=== PATIENT | male | born 1990 | race Caucasian/White ===

== ENCOUNTER 2017-05-19 13:16 | Inpatient (IN) | payer OTHER ==
[~2017-05-19] VITALS: Ht 170.2 cm; Wt 87.7 kg
[2017-05-19] MEDS ORDERED: SOD CHLORIDE 0.9% 1,000 ML IV STA ×3 (13:30→17:29)
[2017-05-19 13:52] LABS: ADD SCAN DIFF NO
--- NOTE | 2017-05-19 14:02 | RADRPT ---
PROCEDURE: XR Chest. CLINICAL INDICATION: Sepsis TECHNIQUE: Single frontal chest x-ray. COMPARISON: None. FINDINGS: The lungs are clear of acute infiltrates, edema, effusions, or masses. There are low lung volumes wi th hilar vascular crowding.. The cardiomediastinal silhouette is unremarkable. The osseous structur es are intact. IMPRESSION: No acute cardiopulmonary disease. Low lung volumes RPTAT: EE .Florian Bates MD, MD Date Time Electronically viewed and signed by .Florian Bates MD, on 05/19/2017 14:02 .L/
[2017-05-19 14:12] LABS: INR 0.79; PARTIAL THROMBOPLASTIN TIME 21.7 Sec (25.0-35.0); PT RATIO 0.9
[2017-05-19 14:17] LABS: BASOPHILS % 0.4 % (0.0-2.0); EOSINOPHILS % 0.4 % (0.0-7.0); HEMATOCRIT 34.3 % (42.0-52.0); HEMOGLOBIN 12.5 g/dl (14.0-18.0); LYMPHOCYTES # 1.1 10^3/ul (0.8-2.9); LYMPHOCYTES % 13.6 % (15.0-51.0); MEAN CORPUSCULAR HEMOGLOBIN 30.3 pg (29.0-33.0); MEAN CORPUSCULAR HGB CONC 36.4 g/dl (32.0-37.0); MEAN CORPUSCULAR VOLUME 83.1 fl (82.0-101.0); MEAN PLATELET VOLUME 10.3 fl (7.4-10.4); MONOCYTE # 0.3 10^3/ul (0.3-0.9); MONOCYTES % 3.6 % (0.0-11.0); NEUTROPHIL # 6.8 10^3/ul (1.6-7.5); PLATELET COUNT 291 10^3/UL (140-415); RED BLOOD COUNT 4.13 10^6/ul (4.70-6.10); RED CELL DISTRIBUTION WIDTH 11.4 % (11.5-14.5); WHITE BLOOD COUNT 8.4 10^3/ul (4.8-10.8)
[2017-05-19 14:18] LABS: ALBUMIN 2.5 g/dl (3.3-4.9); ALBUMIN/GLOBULIN RATIO 0.83; BILIRUBIN,INDIRECT 0.2 mg/dl (0-1.1); BILIRUBIN,TOTAL 0.2 mg/dl (0.2-1.3); CALCIUM 7.2 mg/dl (8.4-10.2); CREATININE 1.95 mg/dl (0.61-1.24); POTASSIUM 3.7 mmol/L (3.5-5.1); TOTAL PROTEIN 5.5 g/dl (6.1-8.1)
[2017-05-19] MEDS ORDERED: INSULIN HUMAN REGULAR 100 UNIT in SOD CHLORIDE 0.9% 99 ML IV STA ×2 (14:43→15:44)
[2017-05-19 15:09] LABS: ADD UMIC YES; UR ASCORBIC ACID NEGATIVE (NEGATIVE); UR BILIRUBIN (Dip) NEGATIVE (NEGATIVE); UR BLOOD (Dip) 1+ mg/dL (NEGATIVE); UR CLARITY CLEAR (CLEAR); UR COLOR STRAW (YELLOW); UR GLUCOSE (Dip) 3+ mg/dL (NEGATIVE); UR KETONES (Dip) NEGATIVE (NEGATIVE); UR LEUKOCYTE ESTERASE (Dip) NEGATIVE Leu/ul (NEGATIVE); UR NITRITE (Dip) NEGATIVE (NEGATIVE); UR RBC 2 /HPF (0-5); UR SPECIFIC GRAVITY (Dip) 1.015 (1.003-1.030); UR TOTAL PROTEIN (Dip) 3+ mg/dl (NEGATIVE); UR UROBILINOGEN (Dip) NEGATIVE (NEGATIVE)
[2017-05-19] MEDS: ACCU-CHEK XX SCH ×13 (15:34→23:32)
[2017-05-19] MEDS ORDERED: SOD CHLORIDE 0.9% 1,000 ML IV SCH (15:44)
[2017-05-19] MEDS ORDERED: DEXTROSE 50% 50 ML SYRINGE IV PRN ×6 (16:00→21:00)
[2017-05-19] MEDS ORDERED: LACTATED RINGER'S 1,000 ML IV SCH (16:44)
[2017-05-19 16:46] LABS: CALCIUM 7.3 mg/dl (8.4-10.2); CREATININE 1.84 mg/dl (0.61-1.24); POTASSIUM 3.5 mmol/L (3.5-5.1)
--- NOTE | 2017-05-19 17:08 | RADRPT ---
PROCEDURE: CT Brain without. CLINICAL INDICATION: Altered mental status. Headache. TECHNIQUE: A CT of the brain was performed on multidetector high-resolution CT scanner utilizing a xial sections from the skull base through the vertex without contrast. The scan was reviewed in sof t tissue brain and high frequency resolution bone algorithm windows. Images were reviewed on a high -resolution PACS workstation. One or more the following does reduction techniques were utilized: Aut omated exposure control, adjustment of the mA/ or kV according to patient's size, or use of iterativ e reconstruction technique. The exam CTDI = 44.81 mGy and the DLP = 630.2 mGy-cm. COMPARISON: None available. FINDINGS: The ventricles and sulci are age-appropriate. There is no intracranial hemorrhage, mass effect or mi dline shift. No abnormal intra-axial or extra-axial fluid collections are seen. The rose/white abdullahi er differentiation is preserved. No acute skull abnormality is noted. The visualized paranasal sinus es are essentially clear. There is thinning of right lens indicative of prior lens replacement. Left parietal scalp swelling is noted without underlying skull fracture. IMPRESSION: 1. No acute intracranial hemorrhage, transcortical infarction or mass effect. 2. Left parietal scalp swelling is noted without underlying skull fracture. RPTAT: HH .Cliff German MD, MD Date Time Electronically viewed and signed by .Cliff German MD, MD on 05/19/2017 17:07 .N/
--- NOTE | 2017-05-19 17:29 | ERA ---
ER Documentation Chief Complaint Date/Time DATE: 05/19/17 TIME: 17:25 Chief Complaint HAD A SZ WAS FEELING DIZZY PRIOR TO SZ AND GLUCOSE READING HI HPI This is a 27-year-old male with a history of type 1 diabetes who is noncompliant on insulin who presents to the emergency room for evaluation of elevated blood sugar, and altered mental status. According to EMS this patient did have a seizure after he started saying he was feeling weak. The patient states that he has not taken his insulin because "I am too busy to take my insulin". The patient has been hospitalized before for the same. ROS All systems reviewed and are negative except as per history of present illness. Medications Home Meds No Active Prescriptions or Reported Meds Allergies Allergies: Coded Allergies: No Known Allergy (Unverified , 05/19/17) PMhx/Soc Hx Alcohol Use: Yes Hx Substance Use: No Smoking Status: Unknown if ever smoked Physical Exam Vitals Vital Signs Date Time Temp Pulse Resp B/P Pulse Ox O2 Delivery O2 Flow Rate FiO2 05/19/17 13:37 100.5 109 18 164/106 96 Physical Exam INITIAL VITAL SIGNS: Reviewed by me GENERAL: The patient is well developed and appropriate for usual state of health in no apparent distress HEENT: Dry mucous membranes, pupils equal, round, and reactive to light. EOMI. There is no scleral icterus. NECK: C-spine is soft and supple, there is no meningismus. There is no cervical lymphadenopathy. LUNGS: Tachycardic, there are no rales, wheezes or rhonchi. HEART: Regular rate and rhythm, no murmurs, clicks, rubs or gallops. ABDOMEN: Soft, non-tender, non-distended. There are bowel sounds in all four quadrants. No rebound or guarding. EXTREMITIES: There is no peripheral cyanosis or edema. No focal swelling or erythema. NEUROLOGICAL: The patient moves all four extremities with 5/5 strength. Cranial nerves II - XII are intact. Normal gait. Alert and oriented SKIN: There is no apparent rash or petechiae. HEME/LYMPHATIC: There is no evidence of excessive bruising or lymphedema. PSYCHIATRIC: The patient does not appear anxious or depressed. Result Diagram: 05/19/17 1340 05/19/17 1605 Results 24 hrs Laboratory Tests Test 05/19/17 13:25 05/19/17 13:40 05/19/17 14:40 05/19/17 15:32 Bedside Glucose > 595mg/dL 584mg/dL White Blood Count 8.410^3/ul Red Blood Count 4.1310^6/ul Hemoglobin 12.5g/dl Hematocrit 34.3% Mean Corpuscular Volume 83.1fl Mean Corpuscular Hemoglobin 30.3pg Mean Corpuscular Hemoglobin Concent 36.4g/dl Red Cell Distribution Width 11.4% Platelet Count 03989^3/UL Mean Platelet Volume 10.3fl Neutrophils % 81.0% Lymphocytes % 13.6% Monocytes % 3.6% Eosinophils % 0.4% Basophils % 0.4% Nucleated Red Blood Cells % 0.0/100WBC Neutrophils # 6.810^3/ul Lymphocytes # 1.110^3/ul Monocytes # 0.310^3/ul Eosinophils # 0.010^3/ul Basophils # 0.010^3/ul Nucleated Red Blood Cells # 0.010^3/ul Prothrombin Time 11.0Sec Prothrombin Time Ratio 0.9 INR International Normalized Ratio 0.79 Activated Partial Thromboplast Time 21.7Sec Sodium Level 117mmol/L Potassium Level 3.7mmol/L Chloride Level 90mmol/L Carbon Dioxide Level 17mmol/L Anion Gap 14 Blood Urea Nitrogen 33mg/dl Creatinine 1.95mg/dl Glucose Level 735mg/dl Lactic Acid Level 3.7mmol/L Calcium Level 7.2mg/dl Total Bilirubin 0.2mg/dl Direct Bilirubin 0.00mg/dl Indirect Bilirubin 0.2mg/dl Aspartate Amino Transf (AST/SGOT) 24IU/L Alanine Aminotransferase (ALT/SGPT) 28IU/L Alkaline Phosphatase 281IU/L Troponin I < 0.012ng/ml Total Protein 5.5g/dl Albumin 2.5g/dl Globulin 3.00g/dl Albumin/Globulin Ratio 0.83 Lipase 323U/L Urine Color STRAW Urine Clarity CLEAR Urine pH 6.0 Urine Specific [place] 1.015 Urine Ketones NEGATIVEmg/dL Urine Nitrite NEGATIVEmg/dL Urine Bilirubin NEGATIVEmg/dL Urine Urobilinogen NEGATIVEmg/dL Urine Leukocyte Esterase NEGATIVELeu/ul Urine Microscopic RBC 2/HPF Urine Microscopic WBC 1/HPF Urine Hemoglobin 1+mg/dL Urine Glucose 3+mg/dL Urine Total Protein 3+mg/dl Test 05/19/17 16:05 05/19/17 16:09 Sodium Level 124mmol/L Potassium Level 3.5mmol/L Chloride Level 95mmol/L Carbon Dioxide Level 21mmol/L Anion Gap 12 Blood Urea Nitrogen 31mg/dl Creatinine 1.84mg/dl Glucose Level 583mg/dl Lactic Acid Level 1.2mmol/L Calcium Level 7.3mg/dl Bedside Glucose 523mg/dL Current Medications Medications (Trade) Dose Ordered Sig/Jania Route PRN Reason Start Time Stop Time Status Last Admin Dose Admin Sodium Chloride 1,000 ml @ 1,000 mls/hr Q1H STAT IV 05/19/17 13:30 05/19/17 14:29 DC 05/19/17 14:03 Sodium Chloride 1,000 ml @ 1,000 mls/hr Q1H STAT IV 05/19/17 14:19 05/19/17 15:18 DC 05/19/17 14:35 Insulin Human Regular/Sodium Chloride (Novolin-R/NS) 100 ml @ 7.8 mls/hr TITRATE STAT IV 05/19/17 14:43 05/20/17 03:32 05/19/17 15:30 Diagnostic Test (Pha) (Accu-Chek) 1 ea Q1H XX 05/19/17 15:00 05/19/17 17:08 Dextrose (D50w Syringe) 50 ml PRN PRN IV DECREASED GLUCOSE 05/19/17 15:00 Dextrose (D50w Syringe) 50 ml Q15M PRN IV For BS 50 or less 05/19/17 16:00 Dextrose 25 ml 25 ml Q15M PRN IV BS between 50-70 05/19/17 16:00 Sodium Chloride 1,000 ml @ 1,000 mls/hr Q1H IV 05/19/17 15:44 05/19/17 16:43 DC Lactated Ringer's 1,000 ml @ 1,000 mls/hr Q1H IV 05/19/17 16:44 05/19/17 17:43 Insulin Human Regular/Sodium Chloride (Novolin-R/NS) 100 ml @ 0 mls/hr DKA PROTOCOL STAT IV 05/19/17 15:44 05/19/17 15:48 DC Diagnostic Test (Pha) (Accu-Chek) 1 ea Q1H XX 05/19/17 16:00 05/19/17 17:13 Miscellaneous Information (* Miscellaneous Pharmacy Order) HYPOGLYCEMIA TREATMENT HYPOGLYCEM PROTOCOL PRN XX Hypoglycemia (BS < 70) 05/19/17 16:00 Procedures/MDM EKG: Rate/Rhythm: Sinus tachycardia QRS, ST, T-waves: [No changes consistent w/ acute ischemia] Impression: [No evidence of ischemia or arrhythmia] Chest X-ray 1V Interpreted by me: Soft Tissue: No acute abnormalities Bones: No acute abnormalities Mediastinum/Cardiac Silhouette/Lungs: [No acute abnormalities] CT brain without: No stroke, no bleed This 27-year-old male presents to the ER for evaluation of altered mental status and possible seizure. When I evaluated this patient he had no active seizure activity however did not dry mucous membranes and tachycardia. The patient states that he has not taken his insulin and his blood sugar reading was "high". This patient had lab work obtained which does reveal increased glucose, large anal gap and decreased CO2. This patient does have a sodium of 117 which could be the cause of this patient's seizure activity. The patient was given 2 L of fluid immediately and was started on insulin drip. This patient will be placed in the intensive care unit at this time. CT of the brain does not reveal any edema, bleeding, or ischemia. He is hemodynamically stable at this time will be placed in intensive care unit under the care of Dr. Trujillo Critical Care: Excluding all billable procedures Time: 46 minutes Treatments/Evaluations: Close monitoring and treatment of unstable vital signs, cardiorespiratory, and neurologic status, while maintaining tight balance of fluid, respiratory, and cardiac interventions. Departure Diagnosis: Primary Impression: DKA, type 1 Additional Impressions: Seizure disorder Hyponatremia Renal insufficiency ROBERT BAPTISTE DO May 19, 2017 17:29
[2017-05-19] MEDS ORDERED: ACETAMINOPHEN 500 MG TAB PO STA (18:44)
[2017-05-19] MEDS: DEXTROSE 5%-LR 1,000 ML IV SCH (19:05)
[2017-05-19] MEDS ORDERED: MAGNESIUM HYDROXIDE 30ML CUP PO PRN (20:30)
[2017-05-19] MEDS ORDERED: DOCUSATE SODIUM 100 MG CAP PO PRN (20:30)
[2017-05-19] MEDS ORDERED: BISACODYL 10 MG SUPP PR PRN (20:30)
[2017-05-19] MEDS ORDERED: HYDROCODONE/APAP (5/325) TAB PO PRN (20:30)
[2017-05-19] MEDS ORDERED: ONDANSETRON 4 MG INJ IV PRN (20:30)
[2017-05-19] MEDS ORDERED: morphine 2 MG INJ IV PRN (20:30)
[2017-05-19] MEDS ORDERED: INSULIN HUMAN REGULAR 100 UNIT in SOD CHLORIDE 0.9% 99 ML IV SCH (20:30)
[2017-05-19] MEDS ORDERED: ACETAMINOPHEN 325 MG TAB PO PRN (20:30)
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
[2017-05-19] MEDS: INSULIN GLARGINE [LANtus] 3 ML PEN SC SCH ×2 (20:53→21:00)
[2017-05-19] MEDS ORDERED: GLUCAGON 1 MG INJ IM PRN (21:00)
[2017-05-19] MEDS ORDERED: GLUCOSE GEL 15 GRAM TUBE PO PRN ×2 (21:00)
[2017-05-19] MEDS ORDERED: GLUCOSE GEL 15 GRAM TUBE BUCCAL PRN (21:00)
[2017-05-19 21:05] LABS: CALCIUM 7.6 mg/dl (8.4-10.2); CREATININE 1.63 mg/dl (0.61-1.24)
[2017-05-19 21:07] LABS: MAGNESIUM 1.9 mg/dl (1.7-2.5); PHOSPHORUS 3.3 mg/dl (2.5-4.9)
[2017-05-19 21:21] LABS: POTASSIUM 2.9 mmol/L (3.5-5.1)
[2017-05-19] MEDS ORDERED: POTASSIUM CHLORIDE (SR) 20 MEQ TAB PO ONE (22:18)
[2017-05-19] MEDS ORDERED: POTASSIUM CHLORIDE 250 ML IVPB ONE (22:30)
[2017-05-19] MEDS: SOD CHLORIDE 0.9% 1,000 ML IV SCH (23:00)
[2017-05-20] VITALS (8 sets, daily range): BP systolic 155–193; BP diastolic 79–121; PULSE 88–103; RESP 16–18; TEMP 98.7; Ht 170.2 cm; Wt 87.7 kg
[2017-05-20] MEDS: ACCU-CHEK XX SCH ×7 (00:40→06:01)
[2017-05-20 02:37] LABS: BARBITURATES Negative (NEGATIVE)
[2017-05-20 02:38] LABS: BENZODIAZEPINES Positive (NEGATIVE); CANNABINOIDS Negative (NEGATIVE); COCAINE Positive (NEGATIVE); OPIATES Negative (NEGATIVE)
[2017-05-20] MEDS: DEXTROSE 5%-LR 1,000 ML IV SCH ×2 (02:39→11:00)
[2017-05-20] MEDS: SOD CHLORIDE 0.9% 1,000 ML IV SCH ×3 (04:10→16:43)
[2017-05-20] MEDS: PANTOPRAZOLE (EC) 40 MG TAB PO SCH (05:54)
[2017-05-20 07:02] LABS: ADD SCAN DIFF NO
[2017-05-20 07:05] LABS: BASOPHILS % 0.4 % (0.0-2.0); EOSINOPHILS # 0.1 10^3/ul (0.0-0.5); HEMATOCRIT 33.9 % (42.0-52.0); HEMOGLOBIN 12.4 g/dl (14.0-18.0); LYMPHOCYTES # 4.4 10^3/ul (0.8-2.9); MEAN CORPUSCULAR HEMOGLOBIN 31.1 pg (29.0-33.0); MEAN CORPUSCULAR HGB CONC 36.6 g/dl (32.0-37.0); MEAN PLATELET VOLUME 9.8 fl (7.4-10.4); MONOCYTE # 0.5 10^3/ul (0.3-0.9); MONOCYTES % 4.9 % (0.0-11.0); NEUTROPHIL # 4.3 10^3/ul (1.6-7.5); NEUTROPHILS % 46.1 % (39.0-77.0); PLATELET COUNT 293 10^3/UL (140-415); RED BLOOD COUNT 3.99 10^6/ul (4.70-6.10); RED CELL DISTRIBUTION WIDTH 11.5 % (11.5-14.5); WHITE BLOOD COUNT 9.4 10^3/ul (4.8-10.8)
[2017-05-20 07:21] LABS: MAGNESIUM 1.9 mg/dl (1.7-2.5)
[2017-05-20 07:28] LABS: ALBUMIN 1.9 g/dl (3.3-4.9); ALBUMIN/GLOBULIN RATIO 0.79; BILIRUBIN,INDIRECT 0.1 mg/dl (0-1.1); BILIRUBIN,TOTAL 0.1 mg/dl (0.2-1.3); CALCIUM 7.7 mg/dl (8.4-10.2); CREATININE 1.57 mg/dl (0.61-1.24); POTASSIUM 3.6 mmol/L (3.5-5.1); TOTAL PROTEIN 4.3 g/dl (6.1-8.1)
[2017-05-20 07:39] LABS: CHOL/HDL RATIO 6.8 RATIO
[2017-05-20] MEDS ORDERED: INSULIN ASPART [NOVOLOG] 3 ML PEN SC SCH (08:00)
[2017-05-20] MEDS ORDERED: PANTOPRAZOLE (EC) 40 MG TAB PO SCH (09:00)
[2017-05-20] MEDS: ENOXAPARIN 40 MG/0.4 ML SYG SC SCH (09:09)
[2017-05-20] MEDS ORDERED: ACCU-CHEK XX SCH (10:00)
[2017-05-20] MEDS ORDERED: LORAZEPAM 1 MG TAB PO PRN (10:30)
--- NOTE | 2017-05-20 14:48 | PN ---
Date/Time of Note Date/Time of Note DATE: 05/20/17 TIME: 14:22 Assessment/Plan VTE Prophylaxis VTE Prophylaxis Intervention: LMWH Assessment/Plan Assessment/Plan 27-year-old male with: 1. Hyperosmolar hyperglycemic nonketotic crisis, resolved, electrolytes stable. Blood sugars stable on current regimen. Continue Lantus 16 units subcutaneously nightly, also to be on sliding scale insulin and pre-meal insulin Discontinue IV fluids if tolerating p.o. Diabetic education. 2. Diabetes mellitus, patient claims is type I, he is noncompliant obviously, Pending diabetic education, on insulin regimen currently with improved blood sugar control. Hemoglobin A1c pending 3. Acute kidney injury secondary to hypovolemia and hypoglycemia, continue IV fluids at a lower rate, renal function much improved, sodium back to normal. Monitor renal function Repleting electrolytes as needed. 3. Hyponatremia, large component of pseudohyponatremia given hyperglycemia but also with a hypovolemic hyponatremia component. Resolved 4. Polysubstance abuse, continue to monitor. Patient seems to show signs of some withdrawal but improved with Ativan. Urine tox screen positive for benzodiazepines and cocaine account services coordinator consult Prophylaxis: Lovenox for DVT prophylaxis, Protonix for GI prophylaxis Disposition: Patient currently on telemetry, will continue to observe another 24 hours, diabetic education pending. Subjective 24 Hr Interval Summary Free Text/Dictation Patient feels better, his blood sugars are much better control, sodium within normal No further complaint this morning. We will continue IV fluids at a lower rate and current insulin regimen Also patient to start going into withdrawal, urine tox screen positive for cocaine and benzodiazepines. Much improved currently. account services coordinator will be involved Exam/Review of Systems Vital Signs Vitals Vital Signs Date Time Temp Pulse Resp B/P Pulse Ox O2 Delivery O2 Flow Rate FiO2 05/20/17 12:39 81 14 120/91 100 Room Air 05/20/17 06:00 98.7 Intake and Output 05/19/17 05/19/17 05/20/17 14:59 22:59 06:59 Intake Total 250 ml Output Total 2100 ml Balance -1850 ml Exam Constitutional: alert, oriented, well developed Respiratory: clear to auscultation, normal air movement Cardiovascular: nl pulses, regular rate and rhythm Gastrointestinal: non-tender, soft Musculoskeletal: nl extremities to inspection Extremities: normal pulses, other (No edema, clubbing or cyanosis) 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 II-XII 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, nl mental status, nl speech, nl strength Results Result Diagram: 05/20/17 0650 05/20/17 0650 Results 24 hrs Laboratory Tests Test 05/19/17 14:40 05/19/17 15:32 05/19/17 16:05 05/19/17 16:09 Urine Color STRAW Urine Clarity CLEAR Urine pH 6.0 Urine Specific [place] 1.015 Urine Ketones NEGATIVE Urine Nitrite NEGATIVE Urine Bilirubin NEGATIVE Urine Urobilinogen NEGATIVE Urine Leukocyte Esterase NEGATIVE Urine Microscopic RBC 2 Urine Microscopic WBC 1 Urine Hemoglobin 1+ H Urine Glucose 3+ H Urine Total Protein 3+ H Bedside Glucose 584 *H 523 *H Sodium Level 124 L Potassium Level 3.5 Chloride Level 95 L Carbon Dioxide Level 21 Anion Gap 12 Blood Urea Nitrogen 31 H Creatinine 1.84 H Glucose Level 583 #*H Hemoglobin A1c Lactic Acid Level 1.2 Calcium Level 7.3 L Test 05/19/17 17:29 05/19/17 18:35 05/19/17 18:37 05/19/17 19:30 Bedside Glucose 357 H 200 147 Lactic Acid Level 2.2 *H Test 05/19/17 20:32 05/19/17 20:37 05/19/17 21:31 05/19/17 22:38 Sodium Level 132 L Potassium Level 2.9 *L Chloride Level 100 Carbon Dioxide Level 25 Anion Gap 10 Blood Urea Nitrogen 29 H Creatinine 1.63 H Glucose Level 143 # Hemoglobin A1c Calcium Level 7.6 L Phosphorus Level 3.3 Magnesium Level 1.9 Bedside Glucose 138 248 H 240 H Test 05/19/17 23:31 05/20/17 00:25 05/20/17 00:30 05/20/17 01:29 Bedside Glucose 190 174 174 Urine Opiates Screen Negative Urine Barbiturates Negative Urine Amphetamines Screen Negative Urine Benzodiazepines Screen Positive Urine Cocaine Screen Positive Urine Cannabinoids Negative Lactic Acid Level 1.2 Test 05/20/17 02:38 05/20/17 03:31 05/20/17 04:35 05/20/17 05:45 Bedside Glucose 171 177 156 158 Test 05/20/17 06:49 05/20/17 06:50 05/20/17 06:51 05/20/17 06:55 Bedside Glucose 178 White Blood Count 9.4 Red Blood Count 3.99 L Hemoglobin 12.4 L Hematocrit 33.9 L Mean Corpuscular Volume 85.0 Mean Corpuscular Hemoglobin 31.1 Mean Corpuscular Hemoglobin Concent 36.6 Red Cell Distribution Width 11.5 Platelet Count 293 Mean Platelet Volume 9.8 Neutrophils % 46.1 Lymphocytes % 47.0 Monocytes % 4.9 Eosinophils % 1.0 Basophils % 0.4 Nucleated Red Blood Cells % 0.0 Neutrophils # 4.3 Lymphocytes # 4.4 H Monocytes # 0.5 Eosinophils # 0.1 Basophils # 0.0 Nucleated Red Blood Cells # 0.0 Sodium Level 137 Potassium Level 3.6 Chloride Level 108 Carbon Dioxide Level 22 Anion Gap 11 Blood Urea Nitrogen 24 H Creatinine 1.57 H Glucose Level 165 Calcium Level 7.7 L Total Bilirubin 0.1 L Direct Bilirubin 0.00 Indirect Bilirubin 0.1 Aspartate Amino Transf (AST/SGOT) 19 Alanine Aminotransferase (ALT/SGPT) 28 Alkaline Phosphatase 112 # Total Protein 4.3 #L Albumin 1.9 L Globulin 2.40 Albumin/Globulin Ratio 0.79 Triglycerides Level 442 H Cholesterol Level 386 H LDL Cholesterol, Calculated 242 HDL Cholesterol 56 Cholesterol/HDL Ratio 6.8 Lactic Acid Level 0.8 Phosphorus Level 3.0 Magnesium Level 1.9 Test 05/20/17 08:51 05/20/17 10:24 Bedside Glucose 199 274 H Medications Medications Current Medications Dextrose 50 ml 50 ml PRN PRN IV DECREASED GLUCOSE; Start 05/19/17 at 15:00 Dextrose/Lactated Ringer's (D5-Lr) 1,000 ml @ 125 mls/hr Q8H IV Last administered on 05/19/17 19:05; Admin Dose 125 MLS/HR; Start 05/19/17 at 19:00 Dextrose (D50w Syringe) 50 ml Q15M PRN IV For BS 50 or less; Start 05/19/17 at 20:30 Dextrose (D50w Syringe) 25 ml Q15M PRN IV BS between 50-70; Start 05/19/17 at 20:30 Insulin Glargine 16 unit 16 unit HS SC Last administered on 05/19/17 20:53; Admin Dose 16 UNIT; Start 05/19/17 at 20:30 Sodium Chloride (NS) 1,000 ml @ 125 mls/hr Q8H IV Last administered on 12:39; Admin Dose 125 MLS/HR; Start 05/19/17 at 20:10 Ondansetron HCl (Zofran Inj) 4 mg Q6H PRN IV NAUSEA AND/OR VOMITING Last administered on 05/20/17 00:42; Admin Dose 4 MG; Start 05/19/17 at 20:30 Acetaminophen (Tylenol Tab) 650 mg Q6H PRN PO PAIN LEVEL 1-3 OR FEVER Last administered on 05/20/17 10:22; Admin Dose 650 MG; Start 05/19/17 at 20:30 Acetaminophen/ Hydrocodone Bitart ([place] (5/325)) 1 tab Q6H PRN PO PAIN LEVEL 4 -6; Start 05/19/17 at 20:30 Morphine Sulfate (morphine) 2 mg Q4H PRN IV PAIN LEVEL 7-10 Last administered on 05/20/17 00:42; Admin Dose 2 MG; Start 05/19/17 at 20:30 Docusate Sodium (Colace) 100 mg Q12H PRN PO CONSTIPATION; Start 05/19/17 at 20: 30 Magnesium Hydroxide (Milk Of Mag) 30 ml DAILY PRN PO CONSTIPATION; Start at 20:30 Bisacodyl (Dulcolax Supp) 10 mg DAILY PRN [place] CONSTIPATION; Start 05/19/17 at 20 :30 Pantoprazole (Protonix Tab) 40 mg DAILY@06 PO Last administered on 05/20/17 05 :54; Admin Dose 40 MG; Start 05/20/17 at 06:00 Enoxaparin Sodium (Lovenox) 40 mg DAILY SC Last administered on 05/20/17 09:09 ; Admin Dose 40 MG; Start 05/20/17 at 09:00 Miscellaneous Information 1 ea NOTE XX ; Start 05/19/17 at 21:00 Glucose (Glutose) 15 gm Q15M PRN PO DECREASED GLUCOSE; Start 05/19/17 at 21:00 Glucose (Glutose) 22.5 gm Q15M PRN PO DECREASED GLUCOSE; Start 05/19/17 at 21: 00 Dextrose (D50w Syringe) 25 ml Q15M PRN IV DECREASED GLUCOSE; Start 05/19/17 at 21:00 Dextrose (D50w Syringe) 50 ml Q15M PRN IV DECREASED GLUCOSE; Start 05/19/17 at 21:00 Glucagon (Glucagen) 1 mg Q15M PRN IM DECREASED GLUCOSE; Start 05/19/17 at 21:00 Glucose (Glutose) 15 gm Q15M PRN BUCCAL DECREASED GLUCOSE; Start 05/19/17 at 21 :00 Metoprolol Tartrate (Lopressor) 25 mg BID PO ; Start 05/20/17 at 21:00 Lorazepam (Ativan) 1 mg Q6H PRN PO Withdrawal Last administered on 05/20/17t 10 :22; Admin Dose 1 MG; Start 05/20/17 at 10:30 NINOSKA HERRERA May 20, 2017 14:32
[2017-05-20 15:59] LABS: MICROALBUMIN 156.5 mg/dL
[2017-05-20] MEDS: INSULIN ASPART [NOVOLOG] 3 ML PEN SC SCH ×3 (17:44→22:04)
[2017-05-20] MEDS ORDERED: ATORVASTATIN 20 MG TAB PO SCH (21:00)
[2017-05-20] MEDS ORDERED: METOPROLOL 25 MG TAB PO SCH (21:00)
[2017-05-20] MEDS ORDERED: INSULIN GLARGINE [LANtus] 3 ML PEN SC SCH (21:00)
[2017-05-20] MEDS: METOPROLOL 25 MG TAB PO SCH (21:54)
[2017-05-21] VITALS (9 sets, daily range): BP systolic 151–163; BP diastolic 87–96; PULSE 75–83; RESP 16–19
[2017-05-21] MEDS ORDERED: ACCU-CHEK XX SCH (02:00)
[2017-05-21] MEDS: PANTOPRAZOLE (EC) 40 MG TAB PO SCH (05:00)
[2017-05-21] MEDS: SOD CHLORIDE 0.9% 1,000 ML IV SCH (05:01)
[2017-05-21 08:30] LABS: MAGNESIUM 1.8 mg/dl (1.7-2.5); PHOSPHORUS 3.7 mg/dl (2.5-4.9)
[2017-05-21 08:31] LABS: CALCIUM 8.4 mg/dl (8.4-10.2); CREATININE 1.52 mg/dl (0.61-1.24); POTASSIUM 3.8 mmol/L (3.5-5.1)
[2017-05-21] MEDS: INSULIN ASPART [NOVOLOG] 3 ML PEN SC SCH ×3 (08:41→12:45)
[2017-05-21] MEDS: METOPROLOL 25 MG TAB PO SCH (08:49)
[2017-05-21] MEDS: ENOXAPARIN 40 MG/0.4 ML SYG SC SCH (08:51)
[2017-05-21] MEDS ORDERED: INSULIN ASPART [NOVOLOG] 3 ML PEN SC SCH (11:50)
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
--- NOTE | 2017-05-21 12:54 | PDOCDIS ---
Discharge Instructions CONDITION Patient Condition: Stable HOME CARE INSTRUCTIONS: Special Diet: carb control ACTIVITY: Activity Restrictions: No Restrictions FOLLOW UP/APPOINTMENTS Follow-up Plan Follow-up with primary care physician within 1 week Referral to diabetic clinic and or endocrinology through [facility] within 2 weeks Referral to social welfare research worker as an outpatient and or addiction services through [facility] SCHOOL/WORK RELEASE May return to School/Work on: May 24, 2017 NINOSKA HERRERA May 21, 2017 12:53
[2017-05-21] MEDS ORDERED: INSU200I SQ (12:57)
[2017-05-21] MEDS ORDERED: INSU200I4 SQ (12:57)
[2017-05-21] MEDS ORDERED: INSULIN GLARGINE [LANtus] 3 ML PEN SC SCH (21:00)
== END 2017-05-21 16:58 | disposition home or self-care (01) | DRG 638 ==
LOC: E/R 13:16 → TEL 05-20 09:00 → E/R 05-20 09:58
PROVIDERS: ADMIT Internal Medicine; ATTEND Internal Medicine
DX: E10.65 Type 1 diabetes mellitus with hyperglycemia (principal); E87.1 Hypo-osmolality and hyponatremia; N17.9 Acute kidney failure, unspecified; G40.909 Epilepsy, unspecified, not intractable, without status epilepticus; F19.10 Other psychoactive substance abuse, uncomplicated; Z91.14 Patient's other noncompliance with medication regimen; Z86.59 Personal history of other mental and behavioral disorders
CPT/HCPCS: 36415; 70450; 71010; 80048; 80053; 80061; 80307; 81001; 82043; 82962; 83036; 83605; 83690; 83735; 84100; 84484; 85025; 85610; 85730; 87040; 87086; 93005; 96372; 96374; 96375; J1650; J1815; J2270; J2405; J3480; J7030; J7120; J7121

== ENCOUNTER 2017-10-25 15:52 | Emergency (ER) | payer OTHER ==
[~2017-10-25] VITALS: Ht 167.6 cm; Wt 85.3 kg
[~2017-10-25 15:52] MED LIST: INSU200I SQ; INSU200I4 SQ
[2017-10-25 15:54] VITALS: Ht 167.6 cm; Wt 85.3 kg
[2017-10-25] MEDS ORDERED: ACETAMINOPHEN 500 MG TAB PO STA (17:58)
[2017-10-25] MEDS ORDERED: PROM5SYR2 PO (18:00)
[2017-10-25] MEDS ORDERED: ACET325T33 PO (18:00)
--- NOTE | 2017-10-25 19:15 | ERD ---
ER Documentation Chief Complaint Chief Complaint FEVER , SORE THROAT , COUGH HPI This is a 27-year-old male presenting to the emergency department complaining of fever, sore throat and cough for the past couple days. He denies any fevers currently. He denies any vomiting diarrhea ROS All systems reviewed and are negative except as per history of present illness. Medications Home Meds Active Scripts Acetaminophen* (Tylenol*) 325 Mg Tablet, 2 TAB PO Q4 Y for PAIN AND OR ELEVATED TEMP, #30 TAB Prov:COLEMAN NASSAR PA-C 10/25/17 Promethazine HCl/Codeine (Prometh-Codein 6.25-10 mg/5 ml) 5 Ml Syrup, 5 ML PO Q6 , #100 Prov:COLEMAN NASSAR PA-C 10/25/17 Insulin Degludec (Tresiba Flextouch U-200) 200 Unit/1 Ml Insuln.pen, 22 UNIT SQ QHS, #1 3 Refills Prov:NINOSKA HERRERA 05/21/17 Insulin Lispro (Humalog Kwikpen) 200 Unit/1 Ml Insuln.pen, 10 UNIT SQ AC MEALS, #1 EA 3 Refills Prov:NINOSKA HERRERA F 05/21/17 Allergies Allergies: Coded Allergies: No Known Allergy (Unverified , 05/19/17) PMhx/Soc History of Surgery: Yes (LT LEG) Anesthesia Reaction: No Hx Neurological Disorder: No Hx Respiratory Disorders: No Hx Cardiac Disorders: Yes (HTN) Hx Psychiatric Problems: No Hx Miscellaneous Medical Probl: Yes (DM TYPE I) Hx Alcohol Use: Yes (OOC) Hx Substance Use: No (pt states just alcohol) Hx Tobacco Use: No Smoking Status: Former smoker Physical Exam Vitals Vital Signs Date Time Temp Pulse Resp B/P Pulse Ox O2 Delivery O2 Flow Rate FiO2 10/25/17 15:54 100.3 107 18 162/87 100 Physical Exam Const: No acute distress, well-appearing Head: Atraumatic Eyes: Normal Conjunctiva ENT: Normal External Ears, Nose and Mouth. Neck: Full range of motion..~ No meningismus. Resp: Clear to auscultation bilaterally Cardio: Regular rate and rhythm, no murmurs Abd: Soft, non tender, non distended. Normal bowel sounds Skin: No petechiae or rashes Back: No midline or flank tenderness Ext: No cyanosis, or edema Neur: Awake and alert Psych: Normal Mood and Affect Results 24 hrs Current Medications Medications (Trade) Dose Ordered Sig/Jania Route PRN Reason Start Time Stop Time Status Last Admin Dose Admin Acetaminophen (Tylenol Tab) 1,000 mg ONCE STAT PO 10/25/17 17:58 10/25/17 17:59 DC 10/25/17 18:11 Procedures/MDM This is a 27-year-old male presenting to the emergency department with signs and symptoms with a viral upper respiratory infection. There is no evidence of pneumonia, strep pharyngitis, peritonsillar abscess or retropharyngeal abscess. Patient stable to be discharged home with prescription for Tylenol and promethazine codeine cough syrup. Discussed return to the ER for any worsening symptoms. He understands and agrees with plan Departure Diagnosis: Primary Impression: URI (upper respiratory infection) Condition: Stable Patient Instructions: Uri, Viral, No Abx (Adult) Referrals: NO PRIMARY,CARE PHYSICIAN Additional Instructions: FOLLOW UP WITH YOUR PRIMARY CARE PHYSICIAN TOMORROW.Return to this facility if you are not improving as expected. Take all medicines as directed. You have been given a medicine which may cause drowsiness.DO NOT DRIVE OR OPERATE DANGEROUS MACHINERY while taking this medicine! COLEMAN NASSAR PA-C Oct 25, 2017 19:15
== END 2017-10-25 18:39 | disposition home or self-care (01) ==
LOC: FTE 15:52
DX: J06.9 Acute upper respiratory infection, unspecified (principal); E10.9 Type 1 diabetes mellitus without complications; I10 Essential (primary) hypertension; F17.210 Nicotine dependence, cigarettes, uncomplicated; Z79.4 Long term (current) use of insulin
CPT/HCPCS: 99283